=== PATIENT | male | born 1995 | race African-American/Black ===

== ENCOUNTER 2022-12-01 07:43 | Emergency (ER) | payer SELFPAY ==
[~2022-12-01] VITALS: Ht 175.3 cm; Wt 64.0 kg
[2022-12-01 07:51] VITALS: BP 143/68
== END 2022-12-01 10:02 | disposition left against medical advice (07) ==
LOC: ER 07:43
DX: Z53.21 Procedure and treatment not carried out due to patient leaving prior to being seen by health care provider (principal)
CPT/HCPCS: 99281